=== PATIENT | female | born 1945 | race Caucasian/White ===

== ENCOUNTER 2019-05-15 14:33 | Observation (INO) ==
[2019-05-15] MEDS ORDERED: NITROGLYCERIN SL ONE (15:00)
--- NOTE | 2019-05-15 15:16 | Diag Imaging Result Doc PS360 ---
EXAM: CHEST-2 VIEWS HISTORY: chest pain TECHNIQUE: Two views COMPARISON: None. FINDINGS: The lungs are hyperexpanded. The heart is not enlarged. The vessels are small. There are no infiltrates. No pleural effusions. Mild scoliosis. IMPRESSION: Emphysema Electronically signed by John Jimenez 05/15/2019 3:13 PM
[2019-05-15 15:52] LABS: BASO# 0.01 X1000 (0.0-0.2); BASO% 0.1 % (0.0-0.8); EOS# 0.13 X1000 (0.0-0.7); EOS% 1.3 % (0.0-10.0); HEMATOCRIT 43.7 % (37.0-47.0); HEMOGLOBIN 14.6 g/dL (12.0-16.0); IMM GRAN# 0.02 X1000 (0.0-0.04); IMM GRAN% 0.2 % (0.0-0.5); MCH 30.9 PG (27-31); MCHC 33.4 g/dL (33-37); MCV 92.6 FL (81-99); MONO# 0.82 X1000 (0.11-0.59); MONO% 8.2 % (1.7-9.3); MPV 10.4 FL (7.4-10.4); NEUT# 6.13 X1000 (1.4-6.5); NEUT% 61.2 % (42.2-75.2); PLT 365 X1000 (130-400); RBC 4.72 XMIL (4.2-5.4); RDW 13.7 % (11.5-14.5); WBC 10.01 X1000 (4.8-10.8)
[2019-05-15 16:10] LABS: AGAP 15; ALB/GLOB RATIO 1.8; ALBUMIN 4.6 g/dL (3.5-5.0); ALKALINE PHOSPHATASE 83 U/L (32-104); BUN 9 mg/dL (8-22); CALCIUM 9.5 mg/dL (8.8-10.2); CHLORIDE 94 mmol/L (98-107); CK PROFILE 115 U/L (24-173); COSMO 261; CREATININE 0.8 mg/dL (0.5-0.9); ESTIMATED GFR > 60; GLUCOSE 96 mg/dL (70-104); GOT 27 U/L (10-30); GPT 14 U/L (10-36); POTASSIUM 4.2 mmol/L (3.5-5.1); SODIUM 131 mmol/L (136-145); TCO2 22 mmol/L (25-35); TOTAL BILIRUBIN 0.35 mg/dL (0.20-1.00); TOTAL PROTEIN 7.1 g/dL (6.3-8.3)
--- NOTE | 2019-05-15 16:15 | EKG Report ---
Test Performed on : 05/15/2019 2:39:59 PM Test Reason : chest pain Blood Pressure : / mmHG Vent. Rate : 077 BPM Atrial Rate : 077 BPM P-R Int : 144 ms QRS Dur : 068 ms QT Int : 384 ms P-R-T Axes : 026 -47 -35 degrees QTc Int : 434 ms Normal sinus rhythm. Left axis deviation Nonspecific ST and T wave abnormality Abnormal ECG No previous ECGs available Unconfirmed Result
[2019-05-15] MEDS ORDERED: POTASSIUM CHLORIDE 10 MEQ in NS 1,000 ML IV ONE (16:34)
--- NOTE | 2019-05-15 17:10 | PROVIDER DOCUMENTATION ---
This chart was entered by Salina Layne Scribe, acting as scribe for Tory Max MD. HPI-Chest Pain - General Chief Complaint: Chest Pain Stated Complaint: CHEST PAIN Time Seen by Provider: 05/15/19 14:44 Source: patient, family (daughter and granddaughter) Allergies/Adverse Reactions: Patient Allergies Allergy/AdvReac Type Severity Reaction Status Date / Time codeine AdvReac NAUSEA/VOMI Verified 05/15/19 15:02 TING Penicillins AdvReac HIVES Verified 05/15/19 15:02 Home Medications: Home Medication List Medication Instructions Recorded Confirmed Last Taken Type Aspirin 81 mg PO DAILY 05/15/19 05/15/19 05/15/19 History 162 mg LISINOpril [Prinivil] 20 mg PO QHS 05/15/19 05/15/19 05/15/19 11:30 History Letrozole [Femara] 2.5 mg PO DAILY 05/15/19 05/15/19 05/14/19 History Nitroglycerin Sl [Nitroglycerin] 0.4 mg SUBLINGUAL PRN PRN 05/15/19 05/15/19 05/14/19 History Omeprazole 40 mg PO QAM 05/15/19 05/15/19 05/15/19 History ROSUVAstatin [Crestor] 20 mg PO WLUNCH 05/15/19 05/15/19 05/14/19 History - History of Present Illness-CP Nature of Presenting Problem: Pt is a 74 yowf brought into the ED by her daughter complaining of chest pain. Pt states that pain started around 4 am, she took a nitroglcerin, the pain came back at 6 am and again at 8 am, with pt taking a nitroglcerin at each event. Pt states that she also took 2 81 mg baby aspirin at 11:30 but the pain is still present. Pt is alert and nontoxic in appearance. Location: reports: central (sternum) Chest Pain Radiation: reports: back (between shoulder blades) Quality of Pain: reports: aching (pt describes it as a deep ache), pressure Severity in ED: mild Onset/Duration: abrupt, 4-6 hours ago (around 4 am) Timing: still present, intermittent (comes back every 2 hours) Context/Activities at Onset: reports: sleep (started at 4 am) Modifying Factors: improves with: nothing Associated Symptoms: denies: abdominal pain, dizziness, headache, syncope, vomiting Nitro Today/Relief: 0.4 mg x 3 (at 4 am, 6 am and 8 am) Aspirin Treatment Today: 81 mg x 2 (at 11:30 am) Prior Chest Pain/Cardiac Workup: reports: cardiac cath, stress test Similar Symptoms Previously?: No Recently Seen Here or By Another Healthcare Provider: Yes (1 month ago at PCP ) Review of Systems - Adult - REVIEW OF SYSTEMS - ADULT Constitutional: reports: no symptoms reported Eyes: reports: no symptoms reported Ears, Nose, Mouth & Throat: reports: no symptoms reported Cardiovascular: reports: see HPI, chest pain. denies: palpitations, syncope Respiratory: denies: cough, shortness of breath Gastrointestinal: reports: see HPI, nausea. denies: abdominal pain, vomiting Genitourinary: reports: no symptoms reported Musculoskeletal: reports: see HPI, back pain (pain radiating from chest) Integumentary: reports: no symptoms reported Neurological: denies: dizziness/vertigo, headache/migraines, syncope Psychiatric: reports: no symptoms reported Endocrine: reports: no symptoms reported Hematologic/Lymphatic: reports: no symptoms reported Allergic/Immunologic: reports: no symptoms reported All Other Systems: Reviewed and Negative Past History - Adult - PAST MEDICAL HISTORY-ADULT Review of Records: reports: Old Records Reviewed, Nursing Assessment Review, Medications Reviewed, Social history reviewed & non-contributory. Major Childhood Illnesses: reports: denies history Cardiovascular: reports: CAD, HTN Respiratory: reports: denies history Gastrointestinal: reports: denies history Genitourinary: reports: denies history Musculoskeletal: reports: denies history Neurological: reports: denies history Endocrine/Immune: reports: denies history Other Conditions: reports: denies history - PRIOR SURGERIES/PROCEDURES Surgical/Procedure History: reports: appendectomy, hysterectomy, BTL, breast (mastectomy) - IMMUNIZATION STATUS Childhood Immunizations: See Nurse Assessment Flu Vaccine: See Nurse Assessment - FAMILY HISTORY Family History: diabetes, CAD under 55yo (father), HTN (father, brothers, daughters) - SOCIAL HISTORY Smoking: cigarettes, less than 1 pack/day Provider spent 3-5 mins advising pt. on dangers of tobacco.: Discussed manners to quit use, and f/u contacts for add'l counseling. Substance Use: alcohol Alcohol Use Frequency: every day Number of drinks per typical drinking period:: 2 drinks Living Situation: alone Physical Exam-General - PHYSICAL EXAM-ADULT Initial Vital Signs Reviewed: Yes - CONSTITUTIONAL General Appearance: appears well, alert, no apparent distress - EYES Eyes: PERRL/EOMI - HEAD, EARS, NOSE, MOUTH & THROAT HENMT: moist mucous membranes - NECK Neck: non-tender, full range of motion - RESPIRATORY Respiratory: lungs clear, normal breath sounds - CARDIOVASCULAR Cardiovascular: regular rate, rhythm - GASTROINTESTINAL (ABDOMEN) Abdominal Exam: normal bowel sounds, non tender, soft - MUSCULOSKELETAL Back Exam: no CVA tenderness Extremity: normal range of motion, non-tender, normal gait, normal inspection - SKIN Integumentary: normal color, normal turgor, warm/dry - PSYCHIATRIC Psych/Mental Status: normal mood/affect, normal thought content, normal thought process, oriented x 3 - HEART Score HEART Score: History: Moderately Suspicious HEART Score: ECG: Non-Specific Repolarization Disturbance/LBBB/PM HEART Score: Age: > or = 65 Years HEART Score: Risk Factors for Atherosclerotic Disease: > or = 3 Risk Factors or History of Atherosclerotic Disease HEART Score: Troponin: < or = Normal Limit Total HEART Score:: 6 Progress - PLAN OF CARE/RESULTS Progress/Plan/Lab Results: Vital Signs - 8 hr 05/15/19 14:43 Temperature 98.0 F Pulse Rate 81 Respiratory Rate 18 Blood Pressure 152/80 O2 Sat by Pulse Oximetry 96 Laboratory Results - last 24 hr 05/15/19 05/15/19 05/15/19 15:37 15:37 15:37 WBC 10.01 RBC 4.72 Hgb 14.6 Hct 43.7 MCV 92.6 MCH 30.9 MCHC 33.4 RDW Std Deviation 13.7 Plt Count 365 MPV 10.4 Immature Gran % (Auto) 0.2 Neut % (Auto) 61.2 Lymph % (Auto) 29.0 Pitkin % (Auto) 8.2 Eos % (Auto) 1.3 Baso % (Auto) 0.1 Immature Gran # (Auto) 0.02 Neut # (Auto) 6.13 Lymph # (Auto) 2.90 Pitkin # (Auto) 0.82 H Eos # (Auto) 0.13 Baso # (Auto) 0.01 Sodium 131 L Potassium 4.2 Chloride 94 L Carbon Dioxide 22 L Anion Gap 15 BUN 9 Creatinine 0.8 Estimated GFR/1.73 m2 > 60 BUN/Creatinine Ratio 11 Glucose 96 Calculated Osmolality 261 Calcium 9.5 Total Bilirubin 0.35 AST 27 ALT 14 Alkaline Phosphatase 83 Creatine Kinase 115 Troponin T < 0.010 Total Protein 7.1 Albumin 4.6 Globulin 2.5 Albumin/Globulin Ratio 1.8 Orders Category Date Time Status cxr [CHEST-2 VIEWS] [RAD] Stat Exams 05/15/19 14:59 Completed CBC WITH DIFF [HEME] Stat Lab 05/15/19 15:37 Completed CK PROFILE [SP CHEM] Stat Lab 05/15/19 15:37 Completed COMPREHENSIVE METABOLIC PANEL [CHEM] Stat Lab 05/15/19 15:37 Completed TROPONIN T Stat Lab 05/15/19 15:37 Completed 0.9% Sodium Chloride Inj [Ns] 1,000 ml Med 05/15/19 16:34 Active Potassium Chloride 10 meq IV 125 mls/hr Nitroglycerin Sl [Nitroglycerin] Med 05/15/19 15:00 Discontinued 0.4 mg SL NOW ONE EKG [EKG] Stat Ther 05/15/19 14:46 Draft Result Diagrams: 05/15/19 15:37 05/15/19 15:37 - REASSESSMENT Reassessment #1 Time Reassessed: 16:45 Status: improving (no chest pain or symptom at this time. discussed labs with pt ( neg trop, na 131) and that she will need an admission based on a tscore of 6. Hospitalised has been paged) - EKG 1 Time of EKG reading by physician:: 14:45 EKG Read and Signed by:: Aries yAala EKG Interpretation (*Must complete 3 of following elements*): Abnormal Rate: 77 Rhythm: NSR [place]: left (deviation) QRS: normal [place] Interval: normal Comments: Nonspecific ST and T wave abnormaility - XRAY 1 XRAY Study: Chest ( EXAM: CHEST-2 VIEWS HISTORY: chest pain TECHNIQUE: Two views COMPARISON: None. FINDINGS: The lungs are hyperexpanded. The heart is not enlarged. The vessels are small. There are no infiltrates. No pleural effusions. Mild scoliosis. IMPRESSION: Emphysema) Impression: See EMR Report (EXAM: CHEST-2 VIEWS HISTORY: chest pain TECHNIQUE: Two views COMPARISON: None. FINDINGS: The lungs are hyperexpande d. The heart is not enlarged. The vessels are small. There are no infiltrates. No pleural effusions. Mild scoliosis. IMPRESSION: Emphysema Electronically signed by John Jimenez 05/15/2019 3:13 PM 05/15/191512 Interpreting Physician: John Jimenez MD Dictated Date/Time: 05/15/191512 cc: Tory Max MD; Tarah Jerry MD) - CONSULTS/PCP/HOSPITALIST Notification #1 *Consult/PCP/Hospitalist*: Dr Nuñez Time Discussed: 17:09 Consult Disposition: Admit (Accepts: wants to admit for observation) Departure - Departure Date of Disposition Decision: 05/15/19 Time of Disposition Decision: 17:08 DIAGNOSIS: Chest pain due to CAD, Hyponatremia Disposition: ADMITTED INPATIENT 09 Certified Medical Emergency: Emergent Condition: Fair Referrals and Follow-Ups: Tarah Jerry MD [Primary Care Provider] - - Critical Care Note This patient required my direct & personal management of CC.: No Attestation - Physician/ RADHIKA Attestation Patient care was provided by Advanced Practice Provider:: No The physician spent face to face time with patient:: Yes Advanced Practice Provider documentation review:: Supervising physician onsite and consulted in the evaluation and care of this patient. The physician did have a face to face encounter with the patient. This chart was documented by the indicated scribe, (Salina Layne, Scribe) and accurately reflects the services I performed and decisions made by me, Tory Max MD, as attested by the provider's signature.
[2019-05-15] MEDS ORDERED: NITROGLYCERIN SL PRN (18:06)
[2019-05-15] MEDS ORDERED: ASPIRIN PO ONE (18:06)
[2019-05-15 18:32] LABS: INR 0.92; PROTIME 12.5 Seconds (11.0-16.0)
[2019-05-15] MEDS: NICODERM PATCH TD SCH (21:19)
[2019-05-15] MEDS: PRINIVIL PO SCH (21:19)
--- NOTE | 2019-05-15 23:20 | HISTORY AND PHYSICAL ---
CHIEF COMPLAIN: Chest pain in the center of the chest since 2 a.m. on 05/15/2019. 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 The patient has been having chest pain since last few months and had seen a sheet tailer in [place] in September 2018, where she had a stress test and coronary angiography done. According to her report, the coronary angiography was largely within normal limits, except mild blockage for which only medical management was recommended by her sheet tailer at that time, though I do not have the official report. Since then, she has had intermittent chest pain episodes and she was scheduled to see Dr. Stan Miller on June 04. Yesterday at nighttime, she suddenly started developing chest pain in the center of the chest and her blood pressure was 150/94, and she took a tablet of nitroglycerin and went to bed again. Again, she experiences chest pain about 4 a.m. and then again at 8 a.m., so she decided to come to the hospital. Her chest pain was located in the center of the chest radiating to the back, occasionally also radiating to right shoulder, associated with shortness of breath and it got better with nitroglycerin. She also had associated shortness of breath. She denied any palpitation or diaphoresis. In the emergency room, she was hemodynamically stable. EKG had normal sinus rhythm and 1st troponin was negative, so hospitalist team was consulted for further management. REVIEW OF SYSTEMS: Negative for headache. Negative for cough. Negative for congestion. Negative for at acidity. Negative for abdominal pain, nausea, vomiting. PAST MEDICAL HISTORY: 1. Hypertension. 2. Hyperlipidemia. 3. Gastroesophageal reflux disease. 4. Bilateral localized breast cancer status post mastectomy. PAST SURGICAL HISTORY: 1. Bilateral mastectomy. 2. Partial hysterectomy in 1973. FAMILY HISTORY: Father of heart attack when he was 43. Two of her brothers have hypertension. SOCIAL HISTORY: Active tobacco, which she started since she was very young, currently half pack a day. Smoking cessation was counseled. Occasional alcohol use, about 1 beer every 2 to 3 days. No recreational drugs. 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 PHYSICAL EXAMINATION: VITAL SIGNS: Currently, temperature of 98 degrees, pulse of 74, respiratory rate 17, blood pressure 120/70, saturating 95% on room air. GENERAL: Not in any acute distress. HEENT: Oral cavity is moist. No pharyngeal congestion or exudate. LUNGS: Air entry bilaterally equal. No wheeze, rhonchi, or crackles. CARDIOVASCULAR: S1, S2 normal. No murmur or gallop. No chest wall tenderness. ABDOMEN: Soft, nontender. Active bowel sounds. EXTREMITY: No lower extremity edema. NEUROLOGIC: She is alert and oriented x3. LABS: Suggestive of no leukocytosis. Normal hemoglobin, normal platelet count. She does have sodium of 131, chloride of 94, BUN of 9, creatinine of 0.8. Her initial troponin was less than 0.010. Microbiology: No positive data. IMAGING: Chest x-ray had emphysema. Electrocardiogram had normal sinus rhythm, left axis deviation, nonspecific ST, T-wave abnormalities. ASSESSMENT AND PLAN: 1. Chest pain, which happened while lying down. Apparently, patient's previous chest pain episodes were also most of the times while lying down, relieved with nitroglycerin though. Her differential includes anginal chest pain, chest pain related to esophageal spasm versus gastroesophageal reflux disease. According to her report, she had mild obstruction in coronary angiography in September 2018 at [place]. I will give her aspirin 325 mg. We will start her on home aspirin, statin, lisinopril. I will order echocardiogram. I will trend serial troponins and consult Cardiology team. I will give her nitroglycerin as needed for further chest pain episodes. 2. Essential hypertension. 3. Hyperlipidemia. 4. Active tobacco abuse. I will start her on nicotine patches once her acute coronary syndrome has been ruled out. 5. Disposition: I will monitor patient on routine medical floor under telemetry. Plan of care discussed with her, all questions have been answered. cc: Fadi Nuñez MD
[2019-05-16] MEDS: PRILOSEC PO SCH ×2 (05:56→06:39)
[2019-05-16 07:30] LABS: BASO# 0.02 X1000 (0.0-0.2); BASO% 0.2 % (0.0-0.8); EOS# 0.24 X1000 (0.0-0.7); EOS% 2.4 % (0.0-10.0); HEMATOCRIT 39.9 % (37.0-47.0); IMM GRAN# 0.03 X1000 (0.0-0.04); IMM GRAN% 0.3 % (0.0-0.5); LYMPH# 3.99 X1000 (1.2-3.4); LYMPH% 40.4 % (20.5-51.1); MCH 30.4 PG (27-31); MCHC 32.6 g/dL (33-37); MCV 93.4 FL (81-99); MONO# 0.85 X1000 (0.11-0.59); MONO% 8.6 % (1.7-9.3); MPV 10.4 FL (7.4-10.4); NEUT# 4.74 X1000 (1.4-6.5); NEUT% 48.1 % (42.2-75.2); PLT 350 X1000 (130-400); RBC 4.27 XMIL (4.2-5.4); RDW 13.5 % (11.5-14.5); WBC 9.87 X1000 (4.8-10.8)
[2019-05-16 07:44] LABS: AGAP 12; BUN 9 mg/dL (8-22); CHLORIDE 100 mmol/L (98-107); COSMO 275; CREATININE 0.8 mg/dL (0.5-0.9); ESTIMATED GFR > 60; GLUCOSE 102 mg/dL (70-104); MAGNESIUM 1.8 mg/dL (1.5-2.7); POTASSIUM 4.2 mmol/L (3.5-5.1); SODIUM 138 mmol/L (136-145); TCO2 26 mmol/L (25-35)
[2019-05-16] MEDS: NICODERM PATCH TD SCH (08:24)
[2019-05-16] MEDS ORDERED: ASPIRIN PO SCH (09:00)
[2019-05-16] MEDS ORDERED: FEMARA PO SCH (09:00)
[2019-05-16] MEDS ORDERED: LOVENOX SUBQ SCH (10:00)
[2019-05-16] MEDS ORDERED: CRESTOR PO SCH (12:00)
--- NOTE | 2019-05-16 14:22 | PROGRESS NOTE ---
DATE: 05/16/2019 INTERVAL HISTORY: No acute events overnight. SUBJECTIVE: Ms. Alfaro is feeling fine. Denies any more chest pain episodes. She, in fact, wanted to go home. I discussed with her about pending Cardiology evaluation. Currently, she denies any chest pain, shortness of breath, nausea, vomiting, abdominal pain. OBJECTIVE: Vital Signs: Temperature 98.2 degrees, pulse 86, respiratory rate 18, blood pressure 138/60, saturating 96% on room air. General: Not in acute distress. HEENT: Oral cavity is moist. Lungs: Air entry bilaterally equal. No wheeze or rhonchi. Cardiovascular: S1, S2 normal. Regular. Abdomen: Soft, nontender. Extremities: No lower extremity edema. Neurologic: She is alert and oriented x3. LABORATORY DATA DURING HOSPITAL ADMISSION: Currently normal WBC, hemoglobin, and platelet count. Normal kidney function. Her sodium and chloride have improved. MICROBIOLOGY: No data. IMAGING: No new imaging. ASSESSMENT AND PLAN: 1. Chest pain. Differential includes anginal chest pain, chest pain related to esophageal spasm versus other gastroesophageal reflux disease. She did have mild obstruction on coronary angiography in 09/2018 as per the report given to me by her. I will continue her on aspirin, statin, lisinopril. Follow up echocardiogram and Cardiology recommendation. I will give her nitroglycerin as needed. 2. Others, essential hypertension and hyperlipidemia. I will treat with her home medications of rosuvastatin and lisinopril. 3. History of a bilateral breast cancer, status post mastectomy. Continue her letrozole. 4. Active tobacco abuse. She was counseled about smoking cessation. She has been started on nicotine patches. Her troponins were unremarkable overnight. 5. Disposition. Appreciate further Cardiology recommendation to see if she would need inpatient stress test versus angiography. Plan of care discussed with the patient. Her questions have been answered. cc: Fadi Nuñez MD
--- NOTE | 2019-05-16 15:38 | CONSULTATION ---
DATE OF CONSULTATION: 05/16/2019 IMPRESSION: 1. Recurrent chest discomfort with features and in a pattern suspicious for possible unstable angina. 2. Known atherosclerotic coronary disease. Patient had previous coronary angiography September 2018 in [place], [place] and was reportedly treated medically thereafter. 3. Hypertension. 4. Chronic cigarette use. RECOMMENDATIONS: 1. Continue aspirin p.o. daily. 2. Continue statin therapy. 3. Given clinical presentation, favor pursuit of left heart catheterization and selective coronary angiography and possible coronary angioplasty. The rationale for this approach along with potential hazards were reviewed with the patient. Patient was also advised that should she need coronary angioplasty/stenting she would need to be transferred to [facility]. She acknowledged forgoing, wished to proceed. HISTORY: This 74-year-old white female with past history of atherosclerotic coronary disease, hypertension, hyperlipidemia, chronic cigarette use was admitted through emergency room for evaluation recurrent chest pain. She had previous evaluation for chest pain back in September. Chest symptoms are similar to what she is experiencing recently. She had evaluation which culminated in coronary angiography which reportedly demonstrated coronary stenosis not in need of coronary angioplasty/stenting. She was treated medically thereafter. Over the past week she has had recurrent chest discomfort reemerge. She describes chest heaviness like an elephant is sitting on her chest that radiates to her back and/or her left arm and right arm. Episodes tend to occur more often at night. On the night prior to admission she was awakened several times with chest heaviness. She checked her blood pressure was elevated. She took a nitroglycerin and discomfort went away. However she had 2 more instances of chest heaviness each of which were relieved with sublingual nitroglycerin. She came for evaluation in the emergency room, was admitted for further workup. She has not had any further chest discomfort. Unfortunately she continues to smoke half pack of cigarettes per day. PAST MEDICAL HISTORY: 1. Hypertension. 2. Hyperlipidemia. 3. Atherosclerotic coronary disease. 4. Gastroesophageal reflux disease. 5. Breast cancer. Patient is status post mastectomy. PAST SURGICAL HISTORY: Includes bilateral mastectomy and partial hysterectomy 1973. ALLERGIES: She is allergic or intolerant to codeine and penicillin . MEDICATIONS PRIOR TO ADMISSION: As listed. SOCIAL HISTORY: She recently moved to [place] from [facility] to live near her daughter. She is a . She smokes half-pack of cigarettes per day. She drinks occasional alcoholic beverage. FAMILY HISTORY: Positive for early coronary disease. REVIEW OF SYSTEMS: Pulmonary: Noncontributory beyond history of present illness. Gastrointestinal: Noncontributory beyond history of present illness. Constitutional: Noncontributory beyond history of present illness. Remainder review of systems negative/noncontributory beyond history present illness with 14 total systems reviewed. PHYSICAL EXAMINATION: General: This is a pleasant, older white female in no distress. Vital signs: Blood pressure 130s over 66, heart rate 66 and regular, oxygen saturation 96%. HEENT: Extraocular motion intact. Mucous membranes are moist. Neck: Supple. No jugular venous distention. No carotid bruits. Chest: Clear to auscultation bilaterally. Cardiac: Reveals a regular rate and rhythm without appreciable murmur or gallop. Abdomen: Soft. Bowel sounds are normal. Extremities: Without edema. Neurologic: Reveals her to be alert and fully oriented. Speech is fluent. She moves all 4 extremities equally well. Skin: Warm and dry. Psychiatric: Reveals her mood to be appropriate. DATA: A 12 lead EKG demonstrates sinus rhythm, left axis deviation and nonspecific T-wave abnormality. LABORATORY DATA: Includes white blood cell count 9.87, hematocrit 39.9, hemoglobin 13, platelet count 350,000. Pro time 12.5, INR 0.92, PTT 27.7, sodium 138, potassium 4.2, chloride 100, carbon dioxide 26, BUN 9, creatinine 0.8. Initial troponin T less than 0.01 with followup troponin T less than 0.01 and less than 0.01. cc: Gerson Carlisle MD
--- NOTE | 2019-05-16 17:50 | EKG Report ---
Test Performed on : 05/16/2019 05:55:54 AM Test Reason : chest pain Blood Pressure : / mmHG Vent. Rate : 067 BPM Atrial Rate : 067 BPM P-R Int : 160 ms QRS Dur : 078 ms QT Int : 418 ms P-R-T Axes : 050 -03 017 degrees QTc Int : 441 ms Normal sinus rhythm. ST & T wave abnormality, consider anterior ischemia Abnormal ECG When compared with ECG of 15-MAY-2019 14:39, (Unconfirmed) QRS axis shifted right ST less depressed in Inferior leads T wave inversion no longer evident in Inferior leads Confirmed by Janeen CARLOS, Miguel Angel ([id number]) on 05/17/2019 9:21:22 AM
[2019-05-16] MEDS: PRINIVIL PO SCH (20:36)
[2019-05-16] MEDS ORDERED: MELATONIN PO SCH (21:00)
[2019-05-17] MEDS: PRILOSEC PO SCH (06:28)
--- NOTE | 2019-05-17 06:57 | EKG Report ---
Test Performed on : 05/17/2019 06:39:39 AM Test Reason : Pre heart cath Blood Pressure : / mmHG Vent. Rate : 067 BPM Atrial Rate : 067 BPM P-R Int : 148 ms QRS Dur : 078 ms QT Int : 418 ms P-R-T Axes : 042 -30 022 degrees QTc Int : 441 ms Normal sinus rhythm. Left axis deviation Nonspecific ST abnormality Abnormal ECG When compared with ECG of 16-MAY-2019 05:55, (Unconfirmed) T wave inversion no longer evident in Anterior leads Confirmed by Janeen CARLOS, Miguel Angel ([id number]) on 05/17/2019 9:22:55 AM
[2019-05-17] MEDS ORDERED: HEPARIN 1000 UNITS/NS 2,000 UNIT/1,000 ML IV.SOLN ONE (07:13)
[2019-05-17 07:26] LABS: INR 0.9; PROTIME 12.2 Seconds (11.0-16.0)
[2019-05-17 07:27] LABS: PTT 28.2 Seconds (22.3-41.8)
[2019-05-17 07:32] VITALS: BP 124/91
[2019-05-17 07:44] LABS: AGAP 15; BUN 9 mg/dL (8-22); CALCIUM 9.2 mg/dL (8.8-10.2); CHLORIDE 98 mmol/L (98-107); COSMO 275; CREATININE 0.7 mg/dL (0.5-0.9); ESTIMATED GFR > 60; GLUCOSE 108 mg/dL (70-104); POTASSIUM 3.8 mmol/L (3.5-5.1); SODIUM 138 mmol/L (136-145); TCO2 25 mmol/L (25-35)
[2019-05-17] MEDS ORDERED: VERSED ONE (07:56)
[2019-05-17] MEDS ORDERED: MORPHINE ONE (07:56)
[2019-05-17] MEDS ORDERED: NS 1,000 ML ONE (07:57)
[2019-05-17] MEDS ORDERED: ANESTHESIA PB SET 88 IN 5742 ONE (07:57)
[2019-05-17] MEDS ORDERED: CLAVE TWINSITE 32 IN 11959 ONE (07:57)
[2019-05-17] MEDS ORDERED: NS 1,000 ML IV SCH (10:00)
--- NOTE | 2019-05-17 15:01 | CARDIAC CATH REPORT ---
PROCEDURE NAME: - PROCEDURE PERFORMED: Left heart catheterization, selective coronary angiography, and left ventriculography. ENTRY SITE: Right femoral artery. CATHETERS USED: A 5-Brazilian JL-4, 3DRC, and angled pigtail. TECHNIQUE: After intravenous sedation with Versed and morphine, local anesthesia with lidocaine was applied over the right femoral artery. Arterial access was established for placement of a 5- Brazilian sheath in the right femoral artery using modified Seldinger technique. Selective coronary angiography was subsequently performed, followed by left heart catheterization and left ventriculography. Upon completion of procedure, arterial sheath was left in place in the right femoral artery in anticipation of percutaneous transluminal coronary angioplasty/stenting of left anterior descending coronary to follow. The patient tolerated diagnostic angiography without apparent complications. FINDINGS: Hemodynamics: Aortic pressure 131/64, with a mean of 91, left ventricular pressure 137 over EDP of 11. Comments on Hemodynamics: 1. There is no significant gradient across the aortic valve demonstrated on pullback of the left ventricle. 2. Left main coronary. The left main coronary is free of significant coronary stenosis. 3. Left anterior descending coronary. The left anterior descending coronary demonstrates a severe (greater 90%) stenosis proximally just after origin of first diagonal branch. The mid-to- distal left anterior descending coronary is relatively smaller caliber with mild irregularities, but no significant stenosis. 4. Ramus intermedius branch. A ramus intermedius branch is present and is free of significant stenosis. 5. Left circumflex coronary. The left circumflex coronary and its branches are free of significant coronary stenosis. 6. Right coronary. The right coronary artery demonstrates a segment of mild (20% to 30%) narrowing involving the midportion of the vessel. The remainder of the right coronary artery and its branches are free of significant stenosis. CONCLUSIONS: 1. Normal left ventricular function without wall motion abnormality evident on BRADY projection. 2. Right dominant coronary anatomy as described, with severe stenosis in proximal left anterior descending coronary, and moderate segmental narrowing in midportion of the right coronary. RECOMMENDATIONS: Recommend percutaneous transluminal coronary angioplasty/stenting of proximal left anterior descending coronary. cc: Gerson Carlisle MD
--- NOTE | 2019-05-17 15:09 | ECHO REPORT ---
ORDER DATE: 05/15/2019 MEASUREMENTS: Septal thickness 1.1, left ventricular internal diameter in diastole 4.3, posterior wall thickness 0.6, left ventricular internal diameter in systole 2.8, aortic root 3.0, left atrium 3.4. SUMMARY: 1. Fair quality study. 2. The aortic valve is trileaflet and opens normally on 2-dimensional images. The peak gradient across aortic valve by Doppler is 10 mmHg. Mitral, tricuspid, and pulmonic valves are without evidence of structural abnormality with trace mitral regurgitation, mild tricuspid regurgitation, and mild pulmonic insufficiency. The estimated systolic PA pressure by Doppler is 30 mmHg. The aortic root is normal in size. 3. Normal left ventricular dimensions demonstrated. The estimated left ventricular ejection fraction appears to be at least 60%. No regional wall motion abnormalities are evident. Left atrium, right atrium, right ventricle are normal in size with preserved right ventricular systolic function. 4. No pericardial effusion. 5. Appearance of inferior vena cava suggests normal central venous pressure. CONCLUSIONS: 1. Mild tricuspid regurgitation with estimated systolic PA pressure by Doppler 30 mmHg. 2. Normal left ventricular systolic function without regional wall motion abnormality evident. cc: MD Fadi Mills MD
--- NOTE | 2019-05-18 11:52 | DISCHARGE SUMMARY ---
ADMISSION DATE: 05/15/2019 DISCHARGE DATE: 05/17/2019 DISCHARGE DISPOSITION: The patient is being transferred to [facility] for stent placement. DISCHARGE CONDITION: Hemodynamically stable. The patient denies any shortness of breath or chest pain. She denies any palpitations though at nighttime she states she did feel some discomfort in the chest. She thought it was because of her anxiety, and she took some deep breath and meditation which helped. DISCHARGE DIAGNOSES: 1. Unstable angina. 2. Essential hypertension. 3. Active tobacco abuse. OTHER DIAGNOSES: 1. History of essential hypertension. 2. History of hyperlipidemia. 3. History of gastroesophageal reflux disease. 4. History of bilateral localized breast cancer status post mastectomy. CONSULTATION DURING HOSPITALIZATION: Dr. Carlisle, Cardiology. DISCHARGE MEDICATIONS: 1. Lisinopril 20 mg at nighttime. 2. Aspirin 81 mg daily. 3. Rosuvastatin 20 mg with lunch. 4. Letrozole 2.5 mg daily. 5. Nitroglycerin 0.4 mg sublingual as needed for chest pain. 6. Omeprazole 40 mg in the morning time. 7. Nicotine Patch 40 mg daily every 24 hours. VITALS: At the time of discharge, temperature 97.8 degrees, pulse 72, respiratory 17, blood pressure 124/91, and saturating 98% on room air. PHYSICAL EXAMINATION: At time of discharge, she is not in acute distress. Oral cavity is moist. Air entry bilaterally equal. No wheezing, rhonchi, or crackles. Cardiovascular: S1, S2 normal. No murmur or gallop. Abdomen: Soft. Nontender. Extremities: No lower extremity edema. She has right-sided groin catheter for recently performed coronary catheterization. She has adequate perfusion of bilateral feet with good capillary refill time. Both feet appear warm to touch. Her dorsalis pedis pulses are palpable on both sides. SIGNIFICANT LABS DURING HOSPITAL ADMISSION AND DISCHARGE: WBC 9.8, hemoglobin 13, and platelet count 350,000. INR 0.9. Potassium 3.8, BUN 9, and creatinine 0.7. Her troponins were less than 0.010. No microbiological data. SIGNIFICANT IMAGING DURING HOSPITAL ADMISSION: Chest x-ray on presentation had emphysema. Echocardiogram had mild tricuspid regurgitation with systolic pulmonary artery pressure of 30 mmHg, normal left ventricular systolic function without any regional wall motion abnormality. Electrocardiogram on presentation and normal sinus rhythm, left axis deviation, nonspecific ST-T abnormality. Cardiac catheterization on 05/17/2019 had normal left ventricular function without any wall motion abnormality. There was a right dominant coronary anatomy with severe stenosis of proximal left anterior descending coronary artery and moderate segmental narrowing in the midportion of the right coronary artery. HOSPITAL COURSE SUMMARY: Ms. Alfaro is a 74-year-old lady with history of active tobacco abuse, who came in with chief complaints of chest pain in the center of the chest since 2:00 in the morning on the day of presentation. She has prior history of hypertension, hyperlipidemia, acute tobacco abuse, and acid reflux. Apparently, patient had to wake up in the middle of the night because of chest pain where she was found to have chest pain in the center of the chest associated with some shortness of breath. She took a dose of nitroglycerin which helped with her pain, and she went to bed again. Again, she experienced chest pain at about 4:00 in the morning and, again at 8:00 in the morning. At that time, she took her aspirin as well as nitroglycerin. She also took her lisinopril and decided to come to the hospital. Her chest pain was located in the center of the chest radiating to back and right shoulder, sometimes associated with shortness of breath and got better with nitroglycerin. In the emergency room, she was hemodynamically stable. Her labs including troponins were unremarkable. EKG had normal sinus rhythm without any significant ST-T changes. However, considering the symptoms, she was admitted and Cardiology team was consulted. She underwent left heart catheterization on 05/17 which did detect she had a stenosis of the LAD so she would be transferred over to [facility]. TIME SPENT: More than 30 minutes of time was spent in preparing this discharge summary. Patient was counseled about the coronary catheterization results and smoking cessation. All of her questions were satisfactorily answered. cc: Fadi Nuñez MD
== END 2019-05-17 10:29 | disposition short-term general hospital (02) ==
LOC: ED 14:33 → INTOOBSV 18:58 → EDIPHOLD 18:58 → 3N 20:07 → 2N 05-17 09:42
PROVIDERS: ATTEND Internal Medicine